=== PATIENT | male | born 1975 | race Caucasian/White ===

== ENCOUNTER 2022-02-10 17:30 | Emergency (ER) | payer SELFPAY ==
[2022-02-10 18:02] VITALS: BP 117/76; PULSE 93; RESP 13; TEMP 36.9; O2SAT 95; BMI 35.5
--- NOTE | 2022-02-10 18:37 | W.ED.EXTPRO ---
HPI - Extremity Problem General: Chief complaint: Extremity Problem,Nontraumatic Stated complaint: Right leg pain and swelling Time Seen by Provider: 02/10/22 18:37 History of Present Illness: 46-year-old male patient comes in today for swelling and discomfort to the right lower extremity. Patient has a history of knee surgery in the past for an ACL/meniscal injury. Patient reports for the last week has had increasing pain and discomfort to the right calf and knee. Patient denies any chronic medical problems. Associated symptoms: Deny chest pain or rash Review of Systems General: Reports: 10 or more systems reviewed and unremarkable except in HPI and below Card: Denies: chest pain Resp: Denies: dyspnea Musc: Reports: extremity pain (Right lower leg) Skin/Breast: Denies: rash Physical Exam Const: COMMON NORMALS: alert HENMT: COMMON NORMALS: normocephalic HEAD & SCALP: normocephalic Neck/C-Spine: COMMON NORMALS: full ROM Resp: COMMON NORMALS: normal respiratory effort Cardio: COMMON NORMALS: regular rate RATE: regular rate Extremity: RIGHT LOWER EXTREMITY: Yes knee joint (Fluid noted to the prepatellar area.) Right knee: Yes inspection, Yes palpation and Yes ROM and Yes lower leg (Calf tenderness and popliteal tenderness.) Right lower leg: Yes inspection, Yes palpation (Mild lower extremity swelling) and Yes neurovascular exam Neuro: SENSORIUM/ORIENTATION: Yes alert Course Vital Signs: Vital signs: Vital Signs Temperature 98.5 F 02/10/22 18:02 Pulse Rate 93 02/10/22 18:02 Respiratory Rate 13 02/10/22 18:02 Blood Pressure 117/76 02/10/22 18:02 Pulse Oximetry 95 02/10/22 18:02 MDM - Extremity (Nontraumatic) Medical Decision Making 46-year-old male patient comes in today for complaints of right knee pain and calf swelling. On exam patient does have some difference in diameter of the calf when compared to the left leg. No obvious redness or decreased pulses are noted in the right extremity. Patient does have some tenderness in the calf and in the posterior knee. Patient also has noticeable effusion to the anterior knee. Differential diagnosis includes not limited to Carrillo's cyst, DVT, effusion of the knee joint, osteoarthritis. X-ray of the knee noted arthritic changes. Ultrasound of the extremity indicated no DVT. Patient does have some chronic back issues I believe this may be causing some mild atrophy of the calf muscle of his left leg which seems to be causing more of dramatic difference in his calf size. There was no sign of DVT. Patient's main complaint today was his knee and has an effusion to the knee. We will give patient a 10 mg injection of dexamethasone to help with inflammation. Patient was also given 30 mg of Toradol for pain. Patient will be kept on diclofenac 75 mg twice a day for the next 2 weeks to see if that would help with resolution of the effusion. Requested case management to have patient follow-up with orthopedist for further treatment and evaluation which the patient agreed to. Lab Data Radiology Impressions Knee X-Ray 02/10/22 18:39 IMPRESSION: 1. Mild medial knee compartment primary osteoarthritis. 2. Mild to moderate joint effusion. Discharge Plan Discharge Patient Disposition: Home Clinical Impression: Effusion of knee joint right Condition: Stable Prescriptions: New diclofenac sodium 75 mg tablet,delayed release (DR/EC) 75 mg PO BID Qty: 30 0RF Discharge Orders: Discharge ED (Routine); Ordered 02/10/22 Ordered By: Lj Card Referrals: Amado Parikh MD [Primary Care Provider] - Discharge Diet: Usual diet Discharge Activity: Increase activity as tolerated Patient Instructions: Osteoarthritis (ED) Activity Restrictions/Additional Instructions: Take medication as directed. Drink plenty of water with medication. Follow-up with orthopedist for further treatment. Return to ER for new concerns. 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
--- NOTE | 2022-02-10 18:39 | USCV_ITS ---
Keenan Mcadams Age: 46 Gender: M : 1975 Exam Date: 02/10/2022 20:08 Ordering Phys: Lj Card Technologist: KEELY Exam Location: [facility] [place] Indication: RLE edema, RT KNEE pain, No hx DVT. HISTORY: RLE edema, RT KNEE pain, No hx DVT. PROCEDURES: Venous duplex imaging was performed in only the right lower extremity. The following venous structures were evaluated: common femoral vein, profunda vein, proximal portion of the greater saphenous vein, superficial femoral vein, and the popliteal vein. In addition, the posterior tibial and peroneal veins were evaluated. On the right side, the common femoral, superficial femoral, profunda femoral, popliteal, posterior tibial, greater saphenous veins and the peroneal veins were identified and interrogated in the standard fashion. FINDINGS: Normal 2-D Doppler and augmentation and compressibility throughout the lower extremity venous structures. Additional imaging through the proximal calf veins also reveals no thrombus. Limited evaluation of the greater saphenous vein is patent with no thrombus. CONCLUSIONS No DVT right lower extremity. Dr. Yuly Soto DO (Electronically Signed) Final Date: 11 February 2022 06:34 S
--- NOTE | 2022-02-10 18:39 | XRR_ITS ---
PROCEDURE INFORMATION: Exam: XR Right Knee Exam date and time: 02/10/2022 6:50 PM Age: 46 years old Clinical indication: Pain; Right; Prior surgery; Surgery date: 6+ months; Surgery type: RT. Knee; Additional info: Swelling TECHNIQUE: Imaging protocol: Radiologic exam of the Right knee. Views: 3 views. COMPARISON: No relevant prior studies available. FINDINGS: Bones/joints: Mild medial knee compartment primary osteoarthritis. Mild to moderate joint effusion. Soft tissues: Normal. XR/XR knee RT 3V* [id number] IMPRESSION: 1. Mild medial knee compartment primary osteoarthritis. 2. Mild to moderate joint effusion.
[2022-02-10] MEDS: ketorolac 30 mg/mL INJ IM (21:15)
[2022-02-10] MEDS: dexamethasone 10 mg/mL INJ IM (21:15)
--- NOTE | 2022-02-16 10:36 | DCPLANNER ---
Addendum entered by Tesha Lemos 03/09/22 11:36: Patient had a follow up appointment scheduled for 02.18.22 with Rachid Stein at ortho - patient did not attend appointment. Original Note: grocery store manager had message to schedule a follow up appointment for patient with ortho. grocery store manager sent patients information to the front office staff at ortho. Patients information will be printed and reviewed. Clinic will call patient with appointment information.
== END 2022-02-10 21:24 | disposition home or self-care (01) ==
PROVIDERS: Emergency Provider Nurse Practitioner Family; PCP Family Medicine
DX: M25.461 Effusion, right knee (principal)
CPT/HCPCS: 73562; 93971; 96372; 99284; J1100; J1885

== ENCOUNTER 2023-03-11 20:33 | Emergency (ER) | payer SELFPAY ==
[2023-03-11 20:40] VITALS: BP 141/89; PULSE 97; RESP 16; TEMP 36.6; O2SAT 99; BMI 37.3
--- NOTE | 2023-03-11 21:00 | XRR_ITS ---
PROCEDURE INFORMATION: Exam: XR Right Tibia and Fibula Exam date and time: 03/11/2023 9:18 PM Age: 47 years old Clinical indication: Pain; Lower leg; Right; Additional info: Right lower leg injury TECHNIQUE: Imaging protocol: Radiologic exam of the right tibia and fibula. Views: 2 views. COMPARISON: No relevant prior studies available. FINDINGS: Bones/joints: No acute osseous abnormality. No dislocation. Soft tissues: No significant soft tissue abnormalities. XR/XR tibia fibula RT 2V [id number] IMPRESSION: No evidence of acute fracture or dislocation.
--- NOTE | 2023-03-11 22:55 | ED_ITS ---
HPI - Extremity Problem General: Chief complaint: Extremity Injury, Lower Stated complaint: Rt Leg Injury Time Seen by Provider: 03/11/23 22:27 History of Present Illness: Patient is in today for right lower leg pain. He reports that he was weed eating prior to arrival and a rock flew back and hit him in his right lower leg. He reports that he was hit in the exact area where he has large varicose veins and now does appear to be ruptured. He reports pain and swelling in that area. He does report being up-to-date on his tetanus vaccination. Associated symptoms: Deny chest pain or fever(s) Review of Systems Const: Denies: fever(s) or chills Card: Denies: chest pain or palpitations Resp: Denies: dyspnea or productive cough Musc: Reports: other (Pain right medial calf) Skin/Breast: Reports: other (Superficial abrasions right medial calf) Physical Exam Const: COMMON NORMALS: no acute distress, patient oriented x3 and alert Resp: COMMON NORMALS: normal respiratory effort and No use of accessory muscles Extremity: NARRATIVE EXTREMITY EXAM: There are superficial abrasions to the right medial calf with a golf ball sized bruise. This is tender to palpation. Pedal pulses are palpable and intact. Color sensation movement distal foot intact. Neuro: COMMON NORMALS: patient oriented x3 SENSORIUM/ORIENTATION: Yes alert Course Vital Signs: Vital signs: Vital Signs Temperature 98 F 03/11/23 20:40 Pulse Rate 97 03/11/23 20:40 Respiratory Rate 16 03/11/23 20:40 Blood Pressure 141/89 03/11/23 20:40 Pulse Oximetry 99 03/11/23 20:40 MDM - Extremity (Nontraumatic) Medical Decision Making Consider contusion/hematoma. X-ray tib-fib negative for fracture and foreign body. Advised patient to keep the wounds clean and dry. Advised patient of typical course of healing of contusion/hematoma. Advised him to monitor closely for any new or worsening symptoms return to the ER should he have new or worsening symptoms. Follow-up with primary care provider at the beginning of next week for continued evaluation. Patient is agreeable to plan of care. Lab Data Radiology Impressions Tibia/Fibula X-Ray 03/11/23 21:00 IMPRESSION: No evidence of acute fracture or dislocation. Discharge Plan Discharge Patient Disposition: Home Clinical Impression: Hematoma and contusion Condition: Stable Prescriptions: No Action diclofenac sodium 75 mg tablet,delayed release (DR/EC) 75 mg PO BID Qty: 30 0RF Discharge Orders: Discharge ED (Routine); Ordered 03/11/23 Ordered By: Steph Yo Referrals: Amado Parikh MD [Primary Care Provider] - Discharge Diet: Usual diet Discharge Activity: Increase activity as tolerated Patient Instructions: Contusion in Adults (ED) Activity Restrictions/Additional Instructions: Keep the area clean and dry. You may use Tylenol or Motrin [id number] for pain. Follow-up with your primary care provider next week for reevaluation. Return to the ER as needed for any new or worsening symptoms. 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
[2023-03-11 23:11] VITALS: RESP 16
== END 2023-03-11 23:11 | disposition home or self-care (01) ==
PROVIDERS: Emergency Provider Nurse Practitioner Family; PCP Family Medicine
DX: S80.11XA Contusion of right lower leg, initial encounter (principal); W20.8XXA Other cause of strike by thrown, projected or falling object, initial encounter
CPT/HCPCS: 73590; 99283

== ENCOUNTER → 2024-08-14 11:03 | Outpatient (BNVA) | payer OTHER, SELFPAY | PROVIDERS: PCP Family Medicine; Visit Provider Clinical Nurse Specialist Adult Health | DX: Z76.89 Persons encountering health services in other specified circumstances (principal); I10 Essential (primary) hypertension | CPT/HCPCS: 80053; 80061; 82306; 83036; 84443; 85025 ==